=== PATIENT | female | born 1975 | race Caucasian/White ===

== ENCOUNTER 2017-03-28 12:38 | Emergency (ER) | payer OTHER ==
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
[2017-03-28 15:07] VITALS: BP 138/86; PULSE 68; RESP 18; TEMP 98.4; O2SAT 95
== END 2017-03-28 15:05 | disposition home or self-care (01) ==
DX: S09.90XA Unspecified injury of head, initial encounter (principal); V89.2XXA Person injured in unspecified motor-vehicle accident, traffic, initial encounter; Y92.410 Unspecified street and highway as the place of occurrence of the external cause; Y99.8 Other external cause status; Y93.89 Activity, other specified

== ENCOUNTER → 2017-04-16 | Outpatient (CLI) | payer OTHER ==
[~2017-04-16] MED LIST: GADOBUTROL 10 ML VIAL IVP ONE
== END ==
LOC: FIMAGING 14:55
PROVIDERS: ATTEND Internal Medicine
DX: S06.0X9A Concussion with loss of consciousness of unspecified duration, initial encounter (principal); M48.02 Spinal stenosis, cervical region; M50.321 Other cervical disc degeneration at C4-C5 level; M48.54XA Collapsed vertebra, not elsewhere classified, thoracic region, initial encounter for fracture
CPT/HCPCS: A9585

== ENCOUNTER 2017-06-30 17:15 | Emergency (ER) | payer BC ==
[2017-06-30 17:27] VITALS: BP 108/72
--- NOTE | 2017-06-30 17:49 | EDPHY ---
H & P Time Seen by Provider: 06/30/17 17:32 HPI/ROS: CHIEF COMPLAINT: Left ankle pain HISTORY OF PRESENT ILLNESS: The patient is a 41-year-old female who presents emergency department after falling while rock climbing. Patient states she was only a foot off the ground when she fell off the rock. Her foot head half way on the mat skilled nursing on the ground. This caused her to turner her left ankle. She now has moderate left lateral ankle pain. Worse with movement. She has difficulty ambulating. She denies any proximal tibia, knee or femur pain. Patient denies any other injury. No neck or back pain. She did not strike her head. No loss consciousness. No numbness or tingling REVIEW OF SYSTEMS: My complete review of systems is negative except as mentioned in the HPI. Past Medical/Surgical History: Includes hypothyroidism, attention deficit hyperactivity disorder, anxiety Past surgical history: No previous ankle surgery. Social history: The patient does not smoke Smoking Status: Former smoker Physical Exam: Vitals noted General Appearance: Alert and no distress. Head: Pupils equal. Normal. Respiratory: No respiratory distress. Cardiac: regular rate and rhythm. Extremities: Patient has tenderness to palpation over the deltoid ligament of her left ankle. No malleolar tenderness. No deformity. No significant swelling. Patient is neurovascular intact distally. No proximal tib-fib, knee or femur tenderness palpation . Skin: No rashes or lesions. Neuro: Alert. Normal mood and affect. Constitutional: Initial Vital Signs Temperature (C) 37 C 06/30/17 17:24 Heart Rate 95 06/30/17 17:24 Respiratory Rate 17 06/30/17 17:24 Blood Pressure 108/72 06/30/17 17:24 O2 Sat (%) 96 06/30/17 17:24 O2 Delivery Mode Room Air Allergies/Adverse Reactions: No Known Allergies Allergy (Verified 06/30/17 17:24) Home Medications: Medication Instructions Recorded Levothyroxine 03/28/17 Prozac 10 MG (*) 03/28/17 Wellbutrin Sr 03/28/17 Medical Decision Making - Diagnostics Imaging Results: Imaging Impressions Ankle X-Ray 06/30/17 17:37 Impression: Mild soft tissue swelling over the lateral malleolus indicating the soft tissue injury. No evidence for fracture. ED Course/Re-evaluation: In the emergency department I discussed possible etiologies with the patient. I answered all her questions. X-ray of left ankle was ordered. Left ankle x-ray: Please refer the dictated report. Soft tissue swelling. There is no fracture or dislocation. I discussed the results with the patient. I answered all her questions. She was given warnings prior to leaving. She will follow up with Orthopedics. She was given a Noam boot. She was neurovascular intact distally prior to discharge. Differential Diagnosis: My differential includes but is not limited to fracture, dislocation, contusion , sprain, strain Departure - Departure Disposition: Home, Routine, Self-Care Clinical Impression: Ankle pain, left Qualifiers: Chronicity: acute Qualified Code(s): M25.572 - Pain in left ankle and joints of left foot Ankle sprain Qualifiers: Encounter type: initial encounter Involved ligament of ankle: other ligament Laterality: left Qualified Code(s): S93.492A - Sprain of other ligament of left ankle, initial encounter Condition: Good Instructions: Ankle Sprain (ED) Additional Instructions: Wear your splint in use crutches as needed. You been given follow-up with Orthopedics. Return with worsening symptoms or concerns. Referrals: Cherie Meneses MD [Primary Care Provider] - As per Instructions Bo Martinez MD [Medical Doctor] - 5-7 days, call for appt.
== END 2017-06-30 18:30 | disposition home or self-care (01) ==
DX: S93.492A Sprain of other ligament of left ankle, initial encounter (principal); Z87.891 Personal history of nicotine dependence; W18.39XA Other fall on same level, initial encounter; Y99.8 Other external cause status; Y93.31 Activity, mountain climbing, rock climbing and wall climbing